=== PATIENT | female | born 1940 | race Caucasian/White ===

== ENCOUNTER 2018-01-30 09:06 | Emergency (ER) | payer MEDICARE, BC ==
--- NOTE | 2018-01-30 09:08 | ER Report ---
History and Physical Time Seen By MD: 09:07 HPI/RAQUEL CHIEF COMPLAINT: "Possible stroke" HISTORY OF PRESENT ILLNESS: Patient is a 77-year-old female with past medical history for hypertension and hypercholesterolemia along with anxiety. She states that approximately 90 minutes prior to presentation she began feeling jittery and noticed some "bulging veins in her left forearm". Because of this she was worried about possible stroke. One but refused transport to the hospital by ambulance and instead came by private vehicle. Patient denies any headaches. She denies any difficulty with speech denies any chest pain or shortness of breath. Patient denies any balance difficulties. Patient's son is with her. He states he does not notice any issues with speech or gait. History of stroke. She recently moved from [place] to [facility] 6 months ago. They are considering moving back to [place] because patient is not adjusting to life and [place] very well. Patient is an occasional smoker with 1-2 cigarettes every 2-3 weeks. Fever or infectious type symptoms. She denies neck pain. REVIEW OF SYSTEMS: Constitutional: No fever, no chills. Eyes: No discharge. ENT: No sore throat. Cardiovascular: No chest pain, no palpitations. Respiratory: No cough, no shortness of breath. Gastrointestinal: No abdominal pain, no vomiting. Genitourinary: No hematuria. Musculoskeletal: No back pain. Skin: No rashes. Neurological: No headache. Allergies: Coded Allergies: No Known Drug Allergies (Unverified , 01/30/18) Home Meds Active Scripts Clonazepam (KLONOPIN) 1 Mg Tablet, 1 MG PO BID for anxiety, #15 TAB Prov:KESHA GRAFF MD 01/30/18 Reported Medications Aspirin (ASPIR 81) 81 Mg Tablet.dr, 81 MG PO QDAY, TAB 01/30/18 Trazodone Hcl (TRAZODONE HCL) 50 Mg Tablet, 50 MG PO QHS 01/30/18 Losartan Potassium (LOSARTAN POTASSIUM) 100 Mg Tablet, 100 MG PO QDAY 01/30/18 Clonazepam (CLONAZEPAM) 1 Mg Tab.rapdis, 1 MG PO BID, #6 TAB 01/30/18 Escitalopram Oxalate (ESCITALOPRAM OXALATE) 10 Mg Tablet, 10 MG PO QDAY, TAB 01/30/18 Amlodipine Besylate (AMLODIPINE BESYLATE) 5 Mg Tablet, 1 TAB PO QDAY, TAB 01/30/18 Past Medical/Surgical History Past medical history for anxiety, depression, hypertension, hypercholesterolemia Constitutional Vital Sign - Last 24 Hours 01/30/18 01/30/18 01/30/18 01/30/18 09:11 09:21 09:23 09:30 Temp 97.0 Pulse 73 75 Resp 16 22 B/P (MAP) 140/105 (117) 140/105 145/84 (104) Pulse Ox 93 93 O2 Delivery Room Air 01/30/18 01/30/18 01/30/18 01/30/18 09:51 10:00 10:06 10:21 Pulse ??? 73 73 Resp 11 24 B/P (MAP) 136/73 (94) Pulse Ox 94 93 01/30/18 01/30/18 01/30/18 01/30/18 10:30 10:36 10:51 10:54 Pulse 68 66 70 Resp 17 14 B/P (MAP) 124/76 (92) Pulse Ox 93 93 Physical Exam General/Constitutional: Patient is awake, alert, nontoxic and in no acute respiratory distress. Head: Normocephalic and atraumatic. Eyes: Conjunctival clear, Pupils are equal and reactive to light. Extraocular muscles are intact and symmetrical. Sclera are clear and anicteric. Ears:External canals are clear. Tympanic membranes are clear with normal landmarks and light reflex. Nares: No rhinorrhea or bleeding. Turbinates are pink and moist. Oropharyngeal: Mucous membranes are moist. There is no pharyngeal erythema or exudate. There are no palatal petechiae. Uvula is midline and symmetrical. Neck: Supple, no adenopathy. Cardiovascular: Heart is regular rate and rhythm without audible murmurs, rubs or gallops. Pulmonary: Lungs are clear to auscultation bilaterally. There are no wheezes, rales, or rhonchi. Chest rise is symmetrical Abdomen: Soft, nontender, no guarding or peritoneal signs. Extremities: No gross deformities, No peripheral cyanosis. Able to move all 4 extremities. Neuro: Alert and oriented X3, Cranial nerves 2 thru 12 are intact and symmetrical. Patient has normal gait. Skin: No rashes, skin is warm dry and well perfused. NIH Stroke Scale: 0 Level of consciousness: Alert -0 Answers both questions correctly-0 Performs both tasks correctly-0 Best Gaze: Normal-0 Visual: No visual loss-0 Facial Palsy: Normal, symmetrical movements-0 Motor Left Arm: No drift for 10 seconds-0 Motor Right Arm: No drift for 10 seconds-0 Motor Left Leg: No drift for 5 seconds-0 Motor Right Leg: No drift for 5 seconds-0 Limb Ataxia: Absent-0 Sensory: Normal, no sensory loss-0 Best Language: Normal, no aphasia-0 Dysarthria: Normal-0 2 Extinction and Inattention: No abnormality-0 Medical Decision Making Data Points Result Diagram: 01/30/18 0920 01/30/18 0920 Laboratory Hematology Test 01/30/18 09:20 01/30/18 09:21 01/30/18 11:18 Red Blood Count 4.76 M/uL (4.17-5.56) Mean Corpuscular Volume 90.4 fL (80.0-96.0) Mean Corpuscular Hemoglobin 31.0 pg (26.0-33.0) Mean Corpuscular Hemoglobin Concent 34.2 g/dL (32.0-36.0) Red Cell Distribution Width 14.3 % (11.5-14.5) Mean Platelet Volume 6.9 fL (7.2-11.1) Neutrophils (%) (Auto) 76.0 % (39.4-72.5) Lymphocytes (%) (Auto) 16.9 % (17.6-49.6) Monocytes (%) (Auto) 6.8 % (4.1-12.4) Eosinophils (%) (Auto) 0.0 % (0.4-6.7) Basophils (%) (Auto) 0.3 % (0.3-1.4) Nucleated RBC Relative Count (auto) 0.2 /100WBC Neutrophils # (Auto) 6.9 K/uL (2.0-7.4) Lymphocytes # (Auto) 1.5 K/uL (1.3-3.6) Monocytes # (Auto) 0.6 K/uL (0.3-1.0) Eosinophils # (Auto) 0.0 K/uL (0.0-0.5) Basophils # (Auto) 0.0 K/uL (0.0-0.1) Nucleated RBC Absolute Count (auto) 0.02 K/uL Prothrombin Time 13.0 seconds (12.0-14.4) Prothromb Time International Ratio 0.98 Activated Partial Thromboplast Time 29 seconds (23-35) Sodium Level 139 mmol/L (137-145) Potassium Level 2.9 mmol/L (3.5-5.0) Chloride Level 100 mmol/L (98-107) Carbon Dioxide Level 24 mmol/L (22-31) Blood Urea Nitrogen 9 mg/dl (7-18) Creatinine 0.80 mg/dl (0.52-1.04) Glomerular Filtration Rate Calc > 60.0 Random Glucose 117 mg/dl (75-110) Calcium Level 9.5 mg/dl (8.4-10.2) Total Bilirubin 0.9 mg/dl (0.2-1.3) Aspartate Amino Transf (AST/SGOT) 30 U/L (0-35) Alanine Aminotransferase (ALT/SGPT) 27 U/L (0-56) Alkaline Phosphatase 81 U/L (0-126) Troponin I < 0.012 ng/ml Total Protein 7.7 g/dl (6.3-8.2) Albumin 4.4 g/dl (3.5-5.0) Whole Blood Glucose 60 mg/DL (75-110) Urine Color Straw Urine Clarity Clear Urine pH 6.0 pH (4.8-9.5) Urine Specific [place] 1.004 Urine Protein Negative mg/dL (NEGATIVE) Urine Glucose (UA) Negative mg/dL (NEGATIVE) Urine Ketones Negative mg/dL (NEGATIVE) Urine Blood Negative (NEGATIVE) Urine Nitrite Negative (NEGATIVE) Urine Bilirubin Negative (NEGATIVE) Urine Urobilinogen Negative mg/dL (0.2-1.9) Urine Leukocyte Esterase Negative (NEGATIVE) Urine RBC <1 /HPF (0-2/HPF) Urine WBC 1 /HPF (0-5/HPF) Urine Squamous Epithelial Cells Many /LPF (</=FEW) Urine Bacteria Few /HPF (NONE-FEW) Urine Mucus None /HPF (NONE-FEW) Chemistry Test 01/30/18 09:20 01/30/18 09:21 01/30/18 11:18 White Blood Count 9.1 k/uL (4.5-11.0) Red Blood Count 4.76 M/uL (4.17-5.56) Hemoglobin 14.7 g/dL (12.0-16.0) Hematocrit 43.1 % (34.0-47.0) Mean Corpuscular Volume 90.4 fL (80.0-96.0) Mean Corpuscular Hemoglobin 31.0 pg (26.0-33.0) Mean Corpuscular Hemoglobin Concent 34.2 g/dL (32.0-36.0) Red Cell Distribution Width 14.3 % (11.5-14.5) Platelet Count 263 K/uL (150-450) Mean Platelet Volume 6.9 fL (7.2-11.1) Neutrophils (%) (Auto) 76.0 % (39.4-72.5) Lymphocytes (%) (Auto) 16.9 % (17.6-49.6) Monocytes (%) (Auto) 6.8 % (4.1-12.4) Eosinophils (%) (Auto) 0.0 % (0.4-6.7) Basophils (%) (Auto) 0.3 % (0.3-1.4) Nucleated RBC Relative Count (auto) 0.2 /100WBC Neutrophils # (Auto) 6.9 K/uL (2.0-7.4) Lymphocytes # (Auto) 1.5 K/uL (1.3-3.6) Monocytes # (Auto) 0.6 K/uL (0.3-1.0) Eosinophils # (Auto) 0.0 K/uL (0.0-0.5) Basophils # (Auto) 0.0 K/uL (0.0-0.1) Nucleated RBC Absolute Count (auto) 0.02 K/uL Prothrombin Time 13.0 seconds (12.0-14.4) Prothromb Time International Ratio 0.98 Activated Partial Thromboplast Time 29 seconds (23-35) Glomerular Filtration Rate Calc > 60.0 Calcium Level 9.5 mg/dl (8.4-10.2) Total Bilirubin 0.9 mg/dl (0.2-1.3) Aspartate Amino Transf (AST/SGOT) 30 U/L (0-35) Alanine Aminotransferase (ALT/SGPT) 27 U/L (0-56) Alkaline Phosphatase 81 U/L (0-126) Troponin I < 0.012 ng/ml Total Protein 7.7 g/dl (6.3-8.2) Albumin 4.4 g/dl (3.5-5.0) Whole Blood Glucose 60 mg/DL (75-110) Urine Color Straw Urine Clarity Clear Urine pH 6.0 pH (4.8-9.5) Urine Specific [place] 1.004 Urine Protein Negative mg/dL (NEGATIVE) Urine Glucose (UA) Negative mg/dL (NEGATIVE) Urine Ketones Negative mg/dL (NEGATIVE) Urine Blood Negative (NEGATIVE) Urine Nitrite Negative (NEGATIVE) Urine Bilirubin Negative (NEGATIVE) Urine Urobilinogen Negative mg/dL (0.2-1.9) Urine Leukocyte Esterase Negative (NEGATIVE) Urine RBC <1 /HPF (0-2/HPF) Urine WBC 1 /HPF (0-5/HPF) Urine Squamous Epithelial Cells Many /LPF (</=FEW) Urine Bacteria Few /HPF (NONE-FEW) Urine Mucus None /HPF (NONE-FEW) Coagulation Test 01/30/18 09:20 Prothrombin Time 13.0 seconds Prothromb Time International Ratio 0.98 Activated Partial Thromboplast Time 29 seconds Urinalysis Test 01/30/18 11:18 Urine Color Straw Urine Clarity Clear Urine pH 6.0 pH (4.8-9.5) Urine Specific [place] 1.004 Urine Protein Negative mg/dL (NEGATIVE) Urine Glucose (UA) Negative mg/dL (NEGATIVE) Urine Ketones Negative mg/dL (NEGATIVE) Urine Blood Negative (NEGATIVE) Urine Nitrite Negative (NEGATIVE) Urine Bilirubin Negative (NEGATIVE) Urine Urobilinogen Negative mg/dL (0.2-1.9) Urine Leukocyte Esterase Negative (NEGATIVE) Urine RBC <1 /HPF (0-2/HPF) Urine WBC 1 /HPF (0-5/HPF) Urine Squamous Epithelial Cells Many /LPF (</=FEW) Urine Bacteria Few /HPF (NONE-FEW) Urine Mucus None /HPF (NONE-FEW) EKG/Imaging EKG Interpretation EKG shows sinus rhythm with a ventricular rate of 72 bpm with occasional PVCs. Patient has T-wave inversions in V4 through 6 consistent with strain pattern Monitor Interpretation: Normal Sinus Rhythm Imaging FACILITY: [facility] [place] PATIENT NAME: Kadie Kemp : 1940 MR: [id number] V: [id number] EXAM DATE: ORDERING PHYSICIAN: KESHA GRAFF TECHNOLOGIST: Location: [facility] Patient: Kadie Kemp : 1940 Visit/Account:[id number] Date of Sevice: 01/30/2018 EXAMINATION: CT head without IV contrast HISTORY: Stroke symptoms. Patient feeling jittery, no focal findings on physical exam. COMPARISON: None. TECHNIQUE: Contiguous axial images were obtained from the skull base to the vertex without intravenous contrast. Sagittal and coronal reformatted images are also submitted. One of the following dose optimization techniques was utilized in the performance of this exam: Automated exposure control; adjustment of the mA and/ or kV according to the patient's size; or use of an iterative reconstruction technique. Specific details can be referenced in the facility's radiology CT exam operational policy. FINDINGS: Brain volume: Normal. Ventricles: Normal. Acute ischemic changes: There is no loss of armstrong-white differentiation to suggest acute ischemia. Hemorrhage: No acute intracranial hemorrhage. Masses/edema: None. Armstrong-white: Negative. White matter: A few hypodensities in the deep white matter bilaterally. Vessels: Calcified plaque of the vertebral arteries and carotid siphons at the skull base. The right M1 segment is slightly denser than the left. Extra-axial: Negative. Calvarium/scalp: Negative. Skull base/visualized face: Negative. Visualized sinuses/orbits: Negative. IMPRESSION: 1. Right M1 segment is slightly denser than the left, but there are no other additional findings of acute infarct. This is likely due to the plane of the vessel, and does not have a typical appearance of a hyperdense clot. 2. No intracranial mass lesion or hemorrhage. No CT evidence of acute infarct. 3. Mild nonspecific white matter disease is suspicious for chronic small vessel ischemia. These findings were discussed with KESHA GRAFF at 01/30/2018 10:12 AM. Report Dictated By: Fatmata Mandujano MD at 01/30/2018 10:05 AM Report E-Signed By: Fatmata Mandujano MD at 01/30/2018 10:14 AM WSN:[id number] FACILITY: [facility] [place] PATIENT NAME: Kadie Kemp : 1940 MR: [id number] V: [id number] EXAM DATE: ORDERING PHYSICIAN: KESHA GRAFF TECHNOLOGIST: Location: [facility] Patient: Kadie Kemp : 1940 Visit/Account:[id number] Date of Sevice: 01/30/2018 Exam type: CHEST SINGLE AP History: stroke sx, chest pain, anxiety Comparison: None. Findings: The lungs are free of acute effusions, infiltrates or edema. No evidence of a pneumothorax or pneumomediastinum. Cardiac silhouette is normal in size. The trachea is midline. IMPRESSION: 1. No acute cardiopulmonary process seen Report Dictated By: Nhung Austin MD at 01/30/2018 9:52 AM Report E-Signed By: Nhung Austin MD at 01/30/2018 9:53 AM WSN:[id number] FACILITY: [facility] [place] PATIENT NAME: Kadie Kemp : 1940 MR: [id number] V: [id number] EXAM DATE: [id number] ORDERING PHYSICIAN: KESHA GRAFF TECHNOLOGIST: Location: [facility] Patient: Kadie Kemp : 1940 Visit/Account:[id number] Date of Sevice: 01/30/2018 INDICATION: "dilated veins." DATE: 01/30/2018 12:21 PM. TECHNIQUE: VENOUS DOPP UPPER LEFT EXTREMI COMPARISON: None FINDINGS: The left internal jugular veins patent. The left subclavian vein, axillary vein , basilic vein, brachial veins, and radial and ulnar veins are patent. The cephalic vein is nonvisualized. IMPRESSION: No left upper extremity DVT. Nonvisualized cephalic vein (superficial). Report Dictated By: Darell Griffin MD at 01/30/2018 12:21 PM Report E-Signed By: Darell Griffin MD at 01/30/2018 12:22 PM WSN:[id number] ED Course/Re-evaluation ED Course 01/30/2018 9:18:20 am patient was seen immediately upon arrival for complaint of strokelike symptoms. NAH stroke scale is 0. Patient does not appear to be experiencing any stroke symptoms. With an NIH stroke scale of 0 and no obvious stroke symptoms, patient is not a candidate for thrombolytics at this time. She is concerned about some "bulging veins" in her left arm. She also has been feeling jittery. Plan at this time will be to continue with stroke work up including CT of the head along with blood work. We will also ultrasound the left upper extremity secondary to some dilated veins in the forearm. Decision to Disposition Date: Jan 30, 2018 Decision to Disposition Time: 13:05 Depart Departure Latest Vital Signs Vital Signs Date Time Temp Pulse Resp B/P (MAP) Pulse Ox O2 Delivery O2 Flow Rate FiO2 01/30/18 10:54 70 01/30/18 10:51 14 93 01/30/18 10:30 124/76 (92) 01/30/18 09:23 97.0 Room Air Impression: Primary Impression: Anxiety Condition: Improved Disposition: HOME OR SELF-CARE New Scripts Clonazepam (KLONOPIN) 1 Mg Tablet 1 MG PO BID for anxiety, #15 TAB Prov: KESHA GRAFF MD 01/30/18 Patient Instructions: Anxiety (ED) KESHA GRAFF MD Jan 30, 2018 09:08
[2018-01-30 09:28] LABS: PLATELET COUNT, AUTOMATED 263 K/uL (150-450)
--- NOTE | 2018-01-30 09:32 | EKG ---
[place] [facility] [place] GABE PIERSON : [id number] MR: [id number] V: [id number] EXAM DATE: ORDERING PHYSICIAN: KESHA GRAFF TECHNOLOGIST: CHIDI Villa Reason : NEURO Blood Pressure : / mmHG Vent. Rate : 072 BPM Atrial Rate : 072 BPM P-R Int : 156 ms QRS Dur : 080 ms QT Int : 404 ms P-R-T Axes : 071 -32 -32 degrees QTc Int : 442 ms Sinus rhythm with occasional premature ventricular complexes Left axis deviation Septal infarct , age undetermined ST and T wave abnormality, consider lateral ischemia Abnormal ECG No previous ECGs available Confirmed by YUSEF WOO ([id number]) on 01/30/2018 10:23:14 AM Referred By: PERRNA Confirmed By:YUSEF WOO
[2018-01-30] MEDS ORDERED: LORazepam 2 MG/ML VIAL IVP ONE (09:35)
[2018-01-30 09:41] LABS: INR 0.98
[2018-01-30] MEDS ORDERED: POTASSIUM CHL 20 MEQ TABCR PO SCH (09:50)
--- NOTE | 2018-01-30 09:57 | RADIOLOGY IMAGING REPORT ---
FACILITY: [facility] [place] PATIENT NAME: Kadie Kemp : 1940 MR: [id number] V: [id number] EXAM DATE: ORDERING PHYSICIAN: KESHA GRAFF TECHNOLOGIST: Location: [facility] [place] Patient: Kadie Kemp : 1940 Visit/Account:[id number] Date of Sevice: 01/30/2018 Exam type: CHEST SINGLE AP History: stroke sx, chest pain, anxiety Comparison: None. Findings: The lungs are free of acute effusions, infiltrates or edema. No evidence of a pneumothorax or pneumo mediastinum. Cardiac silhouette is normal in size. The trachea is midline. IMPRESSION: 1. No acute cardiopulmonary process seen Report Dictated By: Nhung Austin MD at 01/30/2018 9:52 AM Report E-Signed By: Nhung Austin MD at 01/30/2018 9:53 AM WSN:[id number]
--- NOTE | 2018-01-30 10:17 | RADIOLOGY IMAGING REPORT ---
FACILITY: [facility] - [place] PATIENT NAME: Kadie Kemp : 1940 MR: [id number] V: [id number] EXAM DATE: ORDERING PHYSICIAN: KESHA GRAFF TECHNOLOGIST: Location: [facility] [place] Patient: Kadie Kemp : 1940 Visit/Account:[id number] Date of Sevice: 01/30/2018 EXAMINATION: CT head without IV contrast HISTORY: Stroke symptoms. Patient feeling jittery, no focal findings on physical exam. COMPARISON: None. TECHNIQUE: Contiguous axial images were obtained from the skull base to the vertex without intraven ous contrast. Sagittal and coronal reformatted images are also submitted. One of the following dose optimization techniques was utilized in the performance of this exam: Autom ated exposure control; adjustment of the mA and/or kV according to the patient's size; or use of an i terative reconstruction technique. Specific details can be referenced in the facility's radiology C T exam operational policy. FINDINGS: Brain volume: Normal. Ventricles: Normal. Acute ischemic changes: There is no loss of armstrong-white differentiation to suggest acute ischemia. Hemorrhage: No acute intracranial hemorrhage. Masses/edema: None. Armstrong-white: Negative. White matter: A few hypodensities in the deep white matter bilaterally. Vessels: Calcified plaque of the vertebral arteries and carotid siphons at the skull base. The righ t M1 segment is slightly denser than the left. Extra-axial: Negative. Calvarium/scalp: Negative. Skull base/visualized face: Negative. Visualized sinuses/orbits: Negative. IMPRESSION: 1. Right M1 segment is slightly denser than the left, but there are no other additional findings of acute infarct. This is likely due to the plane of the vessel, and does not have a typical appearance of a hyperdense clot. 2. No intracranial mass lesion or hemorrhage. No CT evidence of acute infarct. 3. Mild nonspecific white matter disease is suspicious for chronic small vessel ischemia. These findings were discussed with KESHA GRAFF at 01/30/2018 10:12 AM. Report Dictated By: Fatmata Mandujano MD at 01/30/2018 10:05 AM Report E-Signed By: Fatmata Mandujano MD at 01/30/2018 10:14 AM WSN:[id number]
[2018-01-30] MEDS ORDERED: ASPI-1471 PO (10:31)
[2018-01-30] MEDS ORDERED: ESCI10TA8 PO (10:31)
[2018-01-30] MEDS ORDERED: TRAZ-156 PO (10:31)
[2018-01-30] MEDS ORDERED: CLON-389 PO (10:31)
[2018-01-30] MEDS ORDERED: AMLO-96 PO (10:31)
[2018-01-30] MEDS ORDERED: LOSA100T67 PO (10:31)
--- NOTE | 2018-01-30 12:27 | RADIOLOGY IMAGING REPORT ---
FACILITY: [facility] PATIENT NAME: Kadie Kemp : 1940 MR: [id number] V: [id number] EXAM DATE: ORDERING PHYSICIAN: KESHA GRAFF TECHNOLOGIST: Location: [facility] Patient: Kadie Kemp : 1940 Visit/Account:[id number] Date of Sevice: 01/30/2018 INDICATION: "dilated veins." DATE: 01/30/2018 12:21 PM. TECHNIQUE: VENOUS DOPP UPPER LEFT EXTREMI COMPARISON: None FINDINGS: The left internal jugular veins patent. The left subclavian vein, axillary vein, basilic vein, brachi al veins, and radial and ulnar veins are patent. The cephalic vein is nonvisualized. IMPRESSION: No left upper extremity DVT. Nonvisualized cephalic vein (superficial). Report Dictated By: Darell Griffin MD at 01/30/2018 12:21 PM Report E-Signed By: Darell Griffin MD at 01/30/2018 12:22 PM WSN:[id number]
[2018-01-30 13:00] VITALS: BP 135/70
[2018-01-30] MEDS ORDERED: CLON-1 PO (13:03)
== END 2018-01-30 13:15 | disposition home or self-care (01) ==
LOC: ER 09:17
DX: F41.9 Anxiety disorder, unspecified (principal); R94.31 Abnormal electrocardiogram [ECG] [EKG]; Z86.73 Personal history of transient ischemic attack (TIA), and cerebral infarction without residual deficits; I10 Essential (primary) hypertension; E78.00 Pure hypercholesterolemia, unspecified
CPT/HCPCS: 36416; 70450; 71045; 81001; 82948; 84484; 85025; 85610; 85730; 93005; 93971; 96374; 99285; A9270; J2060; 82040; 82247; 82310; 82374; 82435; 82565; 82947; 84075; 84132; 84155; 84295; 84450; 84460; 84520